=== PATIENT | female | born 1940 | race Two or more races ===

== ENCOUNTER 2018-02-14 02:02 | Inpatient (IN) | payer MEDICARE, OTHER ==
[~2018-02-14] VITALS: Ht 172.7 cm; Wt 59.9 kg
--- NOTE | 2018-02-14 02:32 | NUR ---
PT BIBA FOR MEDICAL CLEARANCE, ALERT, CONFUSED, VS STABLE, PLACED ON ER BED 1, ER DR DUFFY TO COURT PT.
--- NOTE | 2018-02-14 02:49 | NUR ---
URINE SPECIMEN OBTAINED AND SENT TO THE LAB.
[2018-02-14 02:59] LABS: BASOPHILS # (AUTO) 0.1 /CMM (0.0-0.2); BASOPHILS % (AUTO) 0.7 % (0.0-2.0); EOSINOPHILS % (AUTO) 0.2 % (0.0-6.0); HEMATOCRIT 40 % (33-45); HEMOGLOBIN 13.2 g/dL (11.5-14.8); LYMPHOCYTES # (AUTO) 1.3 /CMM (0.8-4.8); LYMPHOCYTES % (AUTO) 11.9 % (20.0-44.0); MEAN CORPUSCULAR HGB CONC 33 g/dl (31.0-36.0); MEAN CORPUSCULAR VOLUME 92 fL (82-100); MONOCYTES # (AUTO) 0.5 /CMM (0.1-1.30); MONOCYTES % (AUTO) 4.4 % (2.0-12.0); NEUTROPHILS # (AUTO) 9.1 /CMM (1.8-8.9); NEUTROPHILS % (AUTO) 82.8 % (43.0-81.0); PLATELET COUNT (AUTO) 258 /CMM (150-450); RED BLOOD CELL COUNT(AUTO) 4.34 MIL/uL (4.0-5.2); WHITE BLOOD COUNT (AUTO) 10.9 K/uL (4.3-11.0)
[2018-02-14 03:03] LABS: BILIRUBIN,URINE NEGATIVE (NEGATIVE); BLOOD, URINE NEGATIVE Ery/uL (NEGATIVE); COLOR,URINE YELLOW (YELLOW); KETONES,URINE NEGATIVE (NEGATIVE); LEUKOCYTE ESTERASE ,URINE NEGATIVE (NEGATIVE); NITRITE, URINE NEGATIVE (NEGATIVE); PROTEIN,URINE NEGATIVE (NEGATIVE); UGLUCOSE NEGATIVE (NEGATIVE); UROBILINOGEN,URINE 0.2 EU/dL (0.2)
[2018-02-14 03:04] LABS: APPEARANCE,URINE CLEAR (CLEAR)
[2018-02-14 03:09] LABS: CALCIUM, SERUM 9.9 mg/dL (8.5-10.1); CARBON DIOXIDE 27 mmol/L (21-32); CHLORIDE 103 mmol/L (98-107); CREATININE 1.5 mg/dL (0.6-1.3); GLUCOSE 120 mg/dL (74-106); POTASSIUM 4.1 mmol/L (3.5-5.1); SODIUM SERUM 140 mmol/L (136-145); UREA NITROGEN, BLOOD 24 mg/dL (7-18)
[2018-02-14 03:15] LABS: ALANINE AMINOTRANSFERASE 31 U/L (12-78); ALBUMIN 3.9 g/dL (3.4-5.0); ALCOHOL, BLOOD < 3 mg/dL (0-0); ALKALINE PHOSPHATASE 93 U/L (46-116); ASPARTATE AMINOTRANSFERASE 25 U/L (15-37); BILIRUBIN,DIRECT 0.1 mg/dL (0.0-0.2); BILIRUBIN,TOTAL 0.4 mg/dL (0.2-1.0); TOTAL PROTEIN, SERUM 7.4 g/dL (6.4-8.2)
[2018-02-14 03:16] LABS: ACETAMINOPHEN 0 ug/ml (10-30); SALICYLATE 1.2 mg/dL (2.8-20.0)
[2018-02-14 05:00] VITALS: BP 162/86
[2018-02-14] MEDS ORDERED: MAGNESIUM HYDROXIDE 30 ML UDC PO PRN (05:00)
[2018-02-14] MEDS ORDERED: MAG HYDROX/AL HYDROX/SIMETH 30 ML UDC PO PRN (05:00)
[2018-02-14] MEDS ORDERED: ACETAMINOPHEN 325 MG TABLET PO PRN (05:00)
[2018-02-14 05:02] VITALS: BP 162/86
--- NOTE | 2018-02-14 05:02 | NUR ---
PT TRANSFERED TO [facility], REPORT GIVEN TO CHARGE NURSE QUINTEN, ROOM # 219A, PT STABLE, VS STABLE, ABLE TO AMBULATE, AOX3, DC SUMMARY TRANSFERED WITH PT.
--- NOTE | 2018-02-14 05:02 | NUR ---
RN OPENING NOTES: RECEIVED PT FROM ER IN WHEELCHAIR. PT IS A/OX2-3. PT APPEARS TO BE ANXIOUS AND GUARDED. NO IV NOTED. NO PAIN NOTED. NO SOB OR S/S OF DISTRESS NOTED. PT STATES THAT SHE HAS NO SUICIDAL IDEATION OR ANY PLANS ON HURTING HERSELF. PT IS STATING THAT HER THIS AM. FULL BODY CHECK PERFORMED WITH ASSISTANCE OF ANOTHER RN AND SCRAP MATERIALS BUYER. PT PLACED IN BED SAFELY. BED KEPT IN LOW, LOCKED POSITION, AND SIDE RAILS X 2UP. WILL CONTINUE TO MONITOR PT.
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
[2018-02-14] MEDS ORDERED: QUET50TA PO (05:26)
[2018-02-14] MEDS ORDERED: BUPR300T52 PO (05:26)
[2018-02-14] MEDS ORDERED: VENL225T PO (05:26)
[2018-02-14] MEDS ORDERED: QUET25TA PO (05:26)
[2018-02-14] MEDS ORDERED: DONE5TAB7 PO (05:26)
--- NOTE | 2018-02-14 05:30 | NUR ---
RN NOTES: BLOOD SUGAR THIS AM WAS 105. APPLE JUICES GIVEN TO PT.
[2018-02-14 06:36] VITALS: BP 155/87
--- NOTE | 2018-02-14 06:51 | NUR ---
RN NOTES: YELLOW BAG/PURSE PLACED IN NURSING STATION. PER PT, WILL BE PICKED UP BY COUSIN SOMETIME TODAY.
--- NOTE | 2018-02-14 06:53 | NUR ---
RN NOTES: PT REQUESTED ADDRESS BOOK FROM [facility]. ADDRESS BOOK WITH PHOTOS GIVEN TO PT.
--- NOTE | 2018-02-14 07:00 | NUR ---
RN CLOSING NOTES: ALL NEEDS WERE ATTENDED AND ANTICIPATED FOR. NO SOB NOTED. NO S/S OF DISTRESS. PT SITTING UP IN BED GOING OVER HER ADDRESS BOOK. PT APPEARS TO BE RAMBLING TO SELF. NO IV NOTED PER PROTOCOL. BED KEPT IN LOW, LOCKED POSITION, AND SIDE RAILS X 2UP. WILL ENDORSE TO AM NURSE FOR ZENA.
[2018-02-14 08:00] VITALS: BP 159/92
[2018-02-14 16:00] VITALS: BP 154/65
[2018-02-14] MEDS: CARVEDILOL 3.125 MG TABLET PO SCH ×2 (16:30→21:05)
[2018-02-14 20:15] VITALS: BP 126/78
[2018-02-14] MEDS: ATORVASTATIN 10 MG TABLET PO SCH (21:10)
[2018-02-14] MEDS: risperiDONE 1 MG TABLET PO SCH (21:43)
[2018-02-15 07:42] LABS: BASOPHILS % (AUTO) 0.6 % (0.0-2.0); EOSINOPHILS % (AUTO) 3.4 % (0.0-6.0); HEMATOCRIT 39 % (33-45); HEMOGLOBIN 13.2 g/dL (11.5-14.8); LYMPHOCYTES % (AUTO) 26.6 % (20.0-44.0); MEAN CORPUSCULAR HGB CONC 34 g/dl (31.0-36.0); MEAN CORPUSCULAR VOLUME 92 fL (82-100); MONOCYTES % (AUTO) 7.9 % (2.0-12.0); NEUTROPHILS % (AUTO) 61.5 % (43.0-81.0); PLATELET COUNT (AUTO) 243 /CMM (150-450); RED BLOOD CELL COUNT(AUTO) 4.27 MIL/uL (4.0-5.2); WHITE BLOOD COUNT (AUTO) 6.2 K/uL (4.3-11.0)
[2018-02-15 07:43] LABS: LYMPHOCYTES # (AUTO) 1.7 /CMM (0.8-4.8); MONOCYTES # (AUTO) 0.5 /CMM (0.1-1.30); NEUTROPHILS # (AUTO) 3.8 /CMM (1.8-8.9)
[2018-02-15 08:00] VITALS: BP 167/75
[2018-02-15 08:00] LABS: ALANINE AMINOTRANSFERASE 29 U/L (12-78); ALBUMIN 3.2 g/dL (3.4-5.0); ALKALINE PHOSPHATASE 81 U/L (46-116); ASPARTATE AMINOTRANSFERASE 27 U/L (15-37); BILIRUBIN,TOTAL 0.4 mg/dL (0.2-1.0); CARBON DIOXIDE 29 mmol/L (21-32); CHLORIDE 107 mmol/L (98-107); GLUCOSE 94 mg/dL (74-106); POTASSIUM 4.3 mmol/L (3.5-5.1); SODIUM SERUM 142 mmol/L (136-145); TOTAL PROTEIN, SERUM 6.6 g/dL (6.4-8.2); UREA NITROGEN, BLOOD 16 mg/dL (7-18)
[2018-02-15 08:05] LABS: CHOLESTEROL 189 mg/dL (<200); HDL CHOLESTEROL 71 mg/dL (40-60); LDL 111 mg/dL (0-99); TRIGLYCERIDES 95 mg/dL (30-150)
[2018-02-15] MEDS: LORAZEPAM 0.5 MG TABLET PO PRN (08:22)
[2018-02-15] MEDS: CARVEDILOL 3.125 MG TABLET PO SCH ×2 (08:22→20:15)
[2018-02-15] MEDS: ASPIRIN 81 MG TAB.CHEW PO SCH (09:04)
[2018-02-15] MEDS: risperiDONE 1 MG TABLET PO SCH ×2 (09:04→21:08)
--- NOTE | 2018-02-15 10:00 | NUR ---
SW contacted pts Cristhian [phone] for collateral information and discharge planning. SUMAYA was unable to reach and left a voicemail for callback.
[2018-02-15 12:10] VITALS: BP 118/54
[2018-02-15] MEDS: hydrALAZINE HCL 10 MG TABLET PO SCH ×2 (12:24→20:16)
[2018-02-15 16:00] VITALS: BP 132/70
[2018-02-15] MEDS: DONEPEZIL 5 MG TABLET PO SCH (18:01)
[2018-02-15 20:00] VITALS: BP 186/85
[2018-02-15 20:36] VITALS: BP 133/75
[2018-02-15] MEDS: ATORVASTATIN 10 MG TABLET PO SCH (21:08)
[2018-02-16] MEDS: LORAZEPAM 0.5 MG TABLET PO PRN ×2 (01:12→20:18)
--- NOTE | 2018-02-16 01:12 | NUR ---
GPS-RN PATIENT C/O FEELING ANXIOUS. ADMINISTERED ATIVAN 1MG PO ORDERED. WILL CONTINUE TO MONITOR [id number] FOR SAFETY AND BEHAVIOR.
[2018-02-16] MEDS: hydrALAZINE HCL 10 MG TABLET PO SCH ×3 (05:29→20:05)
[2018-02-16 08:00] VITALS: BP_SYST 112; BP_SYST 137; BP_DIAS 52; BP_DIAS 61
[2018-02-16] MEDS: ASPIRIN 81 MG TAB.CHEW PO SCH (08:10)
[2018-02-16] MEDS: CARVEDILOL 3.125 MG TABLET PO SCH ×2 (08:11→20:06)
--- NOTE | 2018-02-16 08:21 | NUR ---
SW contacted pts Cristhian [phone] for collateral information and discharge planning. SUMAYA was unable to reach and left a voicemail for callback.
[2018-02-16] MEDS: risperiDONE 1 MG TABLET PO SCH ×2 (08:30→17:07)
--- NOTE | 2018-02-16 10:22 | NUR ---
SW contacted pts Cristhian [phone] for collateral information and discharge planning. SUAMYA was unable to reach and left a voicemail for callback.
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
--- NOTE | 2018-02-16 11:18 | NUR ---
INITIAL DISCHARGE PLAN: Patient wishes to be discharged home to [address], [id number]. SW unable to reach Cristhian [phone] to discuss discharge plan. Pt may need placement if does not return call throughout the duration of pts hospitalization. SW will help form a safe and proper discharge in collaboration with .
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
[2018-02-16 16:19] VITALS: BP 147/99
[2018-02-16] MEDS: DONEPEZIL 5 MG TABLET PO SCH (17:07)
--- NOTE | 2018-02-16 20:19 | NUR ---
GPS-RN PATIENT C/O FEELING ANXIOUS. ADMINISTERED ATIVAN 1MG PO ORDERED. WILL CONTINUE TO MONITOR [id number] FOR SAFETY AND BEHAVIOR.
[2018-02-16 20:29] VITALS: BP 184/92
[2018-02-16 20:30] VITALS: BP 138/76
[2018-02-16] MEDS: ATORVASTATIN 10 MG TABLET PO SCH (21:23)
[2018-02-17] MEDS: risperiDONE 1 MG TABLET PO SCH ×3 (04:39→15:27)
[2018-02-17] MEDS: hydrALAZINE HCL 10 MG TABLET PO SCH ×3 (04:45→21:25)
--- NOTE | 2018-02-17 05:47 | NUR ---
Placed patient on 1:1 sitter for high fall risk.
--- NOTE | 2018-02-17 06:45 | NUR ---
Spoke to Dr Krause regarding the effect of Risperdal 1.5 mg PO to the patient, he gave an order to hold the medication until seen by him.
--- NOTE | 2018-02-17 07:34 | NUR ---
RN - NON ADMIN NOTES Hold Aureadadarling per MD's order. Further instructions will be provided when MD assesses the patient. Addendum: 02/17/18 at 0955 by VIRGIL SAN RN LESTER HEAD NON-ADMIN NOTES
[2018-02-17 08:00] VITALS: BP 153/76
[2018-02-17] MEDS: ASPIRIN 81 MG TAB.CHEW PO SCH (09:14)
[2018-02-17] MEDS: CARVEDILOL 3.125 MG TABLET PO SCH ×2 (09:14→21:25)
--- NOTE | 2018-02-17 13:22 | NUR ---
SUMAYA met with pts Cristhian [phone] face to face and discussed discharge planning. stated that he wants pt to return home once stable.
[2018-02-17] MEDS: RIVASTIGMINE TARTRATE 1.5 MG CAPSULE PO SCH (15:27)
[2018-02-17 16:00] VITALS: BP 141/64
[2018-02-17 19:39] VITALS: BP 167/78
[2018-02-17] MEDS: ATORVASTATIN 10 MG TABLET PO SCH (21:21)
[2018-02-17] MEDS: LORAZEPAM 0.5 MG TABLET PO PRN (22:31)
[2018-02-17 23:30] VITALS: BP 136/72
[2018-02-18] MEDS: risperiDONE 1 MG TABLET PO SCH ×2 (03:00→15:14)
[2018-02-18] MEDS: RIVASTIGMINE TARTRATE 1.5 MG CAPSULE PO SCH ×2 (03:35→15:14)
[2018-02-18] MEDS: hydrALAZINE HCL 10 MG TABLET PO SCH ×3 (05:39→22:03)
[2018-02-18 08:00] VITALS: BP 144/58
[2018-02-18] MEDS: ASPIRIN 81 MG TAB.CHEW PO SCH (09:10)
[2018-02-18] MEDS: CARVEDILOL 3.125 MG TABLET PO SCH ×2 (09:10→22:02)
[2018-02-18 16:00] VITALS: BP 160/94
[2018-02-18 20:00] VITALS: BP 146/68
[2018-02-18 20:40] VITALS: BP 146/88
[2018-02-18] MEDS: ATORVASTATIN 10 MG TABLET PO SCH (22:03)
[2018-02-19] MEDS: risperiDONE 1 MG TABLET PO SCH ×2 (04:38→15:15)
[2018-02-19] MEDS: RIVASTIGMINE TARTRATE 1.5 MG CAPSULE PO SCH ×2 (04:38→15:15)
[2018-02-19] MEDS: hydrALAZINE HCL 10 MG TABLET PO SCH ×2 (05:50→12:40)
[2018-02-19 08:00] VITALS: BP 150/79
[2018-02-19] MEDS: ASPIRIN 81 MG TAB.CHEW PO SCH (08:19)
[2018-02-19] MEDS: CARVEDILOL 3.125 MG TABLET PO SCH ×2 (08:19→19:45)
[2018-02-19 12:40] VITALS: BP 155/97
--- NOTE | 2018-02-19 14:01 | NUR ---
SUMAYA met with pts Cristhian [phone] Krause and discussed pts progress and treatment. Per pt is doing much better and stated "this is the best I've seen her." Dr. Krause and pts agreed that pt will continue on the same medication dosage and will monitor pt over the weekend with a discharge on Thursday02/22/18.
[2018-02-19 15:30] VITALS: BP 109/56
[2018-02-19 15:50] VITALS: BP 179/85
--- NOTE | 2018-02-19 16:01 | NUR ---
MILENA JACKSON MADE AWARE THAT LBP IS 179/85 AND ME 86 AND ORDERED TO INCREASE HYDRLAZINE TO 25 MG PO AND FIRST DOSE NOW.
[2018-02-19] MEDS: hydrALAZINE HCL 25 MG TABLET PO SCH ×2 (16:15→19:45)
[2018-02-19 17:39] VITALS: BP 156/88
[2018-02-19] MEDS: LORAZEPAM 0.5 MG TABLET PO PRN (19:09)
--- NOTE | 2018-02-19 19:10 | NUR ---
PATIENT VRBALIZED HER FEELINGS OF ANXIETY DURING MY INITIAL ROUNDING, PATIENT IS ALSO JIMBO, ATIVAN 1 MG PO GIVEN.
--- NOTE | 2018-02-19 19:46 | NUR ---
BP NOW 179/79, 86. EARLY DOSE OF APRESOLINE AND CARVEDILOL TABS PO GIVEN DUE SUPPOSEDLY AT 2100 TONIGHT
[2018-02-19 20:00] VITALS: BP 173/79
[2018-02-19] MEDS: TEMAZEPAM 7.5 MG CAPSULE PO PRN (20:29)
[2018-02-19] MEDS: ATORVASTATIN 10 MG TABLET PO SCH (21:01)
--- NOTE | 2018-02-20 03:21 | NUR ---
LATEST BP 111/61, HR 86
[2018-02-20] MEDS: risperiDONE 1 MG TABLET PO SCH ×2 (03:46→15:25)
[2018-02-20] MEDS: RIVASTIGMINE TARTRATE 1.5 MG CAPSULE PO SCH ×2 (03:46→15:25)
[2018-02-20] MEDS: hydrALAZINE HCL 25 MG TABLET PO SCH ×3 (06:31→20:19)
--- NOTE | 2018-02-20 06:36 | NUR ---
0545 BP 131/71, HR 91. HYDRALAZINE 25 MG TAB PO GIVEN.
[2018-02-20 08:04] VITALS: BP 148/74
[2018-02-20] MEDS: ASPIRIN 81 MG TAB.CHEW PO SCH (08:27)
[2018-02-20] MEDS: CARVEDILOL 3.125 MG TABLET PO SCH ×2 (08:27→20:20)
[2018-02-20 17:07] VITALS: BP 151/75
--- NOTE | 2018-02-20 19:38 | NUR ---
RECEIVED UP AMBULATING INSIDE HER ROOM, TRYING TO FIX HER THINGS. 1:1 SITTER AT THE BEDSIDE FOR SAFETY.
[2018-02-20 20:00] VITALS: BP 162/77
[2018-02-20] MEDS: TEMAZEPAM 7.5 MG CAPSULE PO PRN (20:20)
[2018-02-20] MEDS: ATORVASTATIN 10 MG TABLET PO SCH (20:20)
--- NOTE | 2018-02-20 20:21 | NUR ---
NIGHT MEDS GIVEN, PATIENT IS ALMOST READY TO SLEEP. TEMAZEPAM 15 MG PO GIVEN.
[2018-02-21] MEDS: RIVASTIGMINE TARTRATE 1.5 MG CAPSULE PO SCH ×2 (03:42→14:39)
[2018-02-21] MEDS: risperiDONE 1 MG TABLET PO SCH ×2 (03:42→14:39)
[2018-02-21] MEDS: hydrALAZINE HCL 25 MG TABLET PO SCH ×3 (05:45→22:24)
--- NOTE | 2018-02-21 06:24 | NUR ---
LATEST BP 167/75, HR 88, ROUTINE BP MEDS GIVEN, HYDRALAZINE 25 MG PO GIVEN
[2018-02-21 07:53] VITALS: BP 144/77
[2018-02-21] MEDS: CARVEDILOL 3.125 MG TABLET PO SCH ×2 (09:15→22:24)
[2018-02-21] MEDS: ASPIRIN 81 MG TAB.CHEW PO SCH (09:15)
[2018-02-21 16:15] VITALS: BP 136/67
--- NOTE | 2018-02-21 19:29 | NUR ---
PATIENT REFUSED SKIN ASSESSMENT AND PHOTO, STATED, " IT IS NOT NECESSARY." WILL TRY AGAIN LATER.
[2018-02-21 20:23] VITALS: BP 122/63
--- NOTE | 2018-02-21 21:15 | NUR ---
FOLLOWED UP WITH PATIENT IF SKIN ASSESSMENT CAN BE DONE AT THIS TIME, STATED, " I DON'T LIKE YOU TO TAKE A PHOTO OF MY SKIN, IT IS MY SKIN AND I AM OLD."
[2018-02-21] MEDS: ATORVASTATIN 10 MG TABLET PO SCH (22:23)
[2018-02-22] MEDS: RIVASTIGMINE TARTRATE 1.5 MG CAPSULE PO SCH (03:17)
[2018-02-22] MEDS: risperiDONE 1 MG TABLET PO SCH (03:18)
[2018-02-22] MEDS: hydrALAZINE HCL 25 MG TABLET PO SCH (05:53)
--- NOTE | 2018-02-22 05:53 | NUR ---
latest bp now, 140/72, hr 80
[2018-02-22 08:00] VITALS: BP 151/89
[2018-02-22] MEDS: ASPIRIN 81 MG TAB.CHEW PO SCH (08:33)
[2018-02-22 08:34] VITALS: BP 151/89
[2018-02-22] MEDS: CARVEDILOL 3.125 MG TABLET PO SCH (08:34)
--- NOTE | 2018-02-22 09:00 | NUR ---
GPS/RN-NOTES GOT ORDER FROM DR. VALIENTE TO DISCHARGE PATIENT HOME.NOTED AND CARRIED OUT.
--- NOTE | 2018-02-22 11:30 | NUR ---
EYELET MAKER NOTE PT DISCHARGED HOME UNDER CARE OF . PT STABLE, DC PER MEDICAL AND PSYCH. PT DENIES PRESENCE OF SUICIDAL OR HOMICIDAL IDEATION. PT DENIES PRESENCE OF VISUAL OR AUDITORY HALLUCINATIONS. PER MEDICAL, VSS. DISCHARGE TEACHING PERFORMED, PT VERBALIZED UNDERSTANDING OF TEACHING. D/C PAPERS INCLUDING INSTRUCTIONS/WAIVERS/FORMS SIGNED BY PT, COPIED, AND PLACED IN CHART. ID BAND REMOVED. PHYSICAL MEDICAL AND PSYCH PRESCRIPTIONS GIVEN TO PT. PT D/C WITH [facility] PROVIDED BY [facility]. PT LEFT HOSPITAL IN PRIVATE VEHICLE WITH .
--- NOTE | 2018-02-22 11:43 | NUR ---
DISCHARGE NOTE: PT was discharged at 11:00am home to [address] [place] [id number]. Pt was picked up and transported home by Cristhian [phone] who agreed with discharge plan. Pts mood was euphoric with congruent affect. Pt denied visual/auditory hallucinations and denied suicidal/homicidal ideations. Pts will schedule a follow up appointment with Psychiatrist: Dr. Irving Hopson [address], [place], [place] [id number] [phone] and Frame Builder: Dr. Tanya Trinh [address], [place] [address] [phone]. The multidisciplinary exitcare form was done, printed, signed, and given to the patient.
== END 2018-02-22 11:15 | disposition home or self-care (01) | DRG 885 ==
LOC: ER 02:04 → GPS 04:07
PROVIDERS: ADMIT Psychiatry & Neurology Psychiatry; ATTEND Psychiatry & Neurology Psychiatry
DX: F29 Unspecified psychosis not due to a substance or known physiological condition (principal); N17.0 Acute kidney failure with tubular necrosis; N18.9 Chronic kidney disease, unspecified; G93.41 Metabolic encephalopathy; E44.1 Mild protein-calorie malnutrition; F03.90 Unspecified dementia, unspecified severity, without behavioral disturbance, psychotic disturbance, mood disturbance, and anxiety; E78.5 Hyperlipidemia, unspecified; I12.9 Hypertensive chronic kidney disease with stage 1 through stage 4 chronic kidney disease, or unspecified chronic kidney disease; Z68.20 Body mass index [BMI] 20.0-20.9, adult; Z86.73 Personal history of transient ischemic attack (TIA), and cerebral infarction without residual deficits; F22 Delusional disorders; Z88.0 Allergy status to penicillin; Z88.2 Allergy status to sulfonamides
CPT/HCPCS: 36415; 80048-TC; 80053-TC; 80061-TC; 80076-TC; 80305; 81000-TC; 82962-TC; 85025-TC; 87081-TC; A4606; A6402; G0480; Z7610